=== PATIENT | female | born 1990 | race Caucasian/White ===

== ENCOUNTER → 2019-11-24 | Outpatient (REF) | payer OTHER | LOC: M SFHCPLAZ 09:20 | PROVIDERS: ATTEND Family Medicine | DX: F32.9 Major depressive disorder, single episode, unspecified (principal); E78.5 Hyperlipidemia, unspecified; Z13.1 Encounter for screening for diabetes mellitus ==

== ENCOUNTER → 2019-11-29 | Outpatient (CLI) | payer OTHER ==
[2019-11-29 09:20] LABS: HEMOGLOBIN A1c 5.5 %
[2019-11-29 09:31] LABS: CHOLESTEROL RISK RATIO 2.795 (<5); FREE T4 0.91 NG/DL (0.76-1.46); THYROID STIMULATING HORMONE 1.89 uIU/ML (0.358-3.740)
== END ==
LOC: M LAB 08:34
PROVIDERS: ATTEND Student in an Organized Health Care Education/Training Program
DX: Z13.1 Encounter for screening for diabetes mellitus (principal); E78.5 Hyperlipidemia, unspecified; F32.9 Major depressive disorder, single episode, unspecified

== ENCOUNTER → 2021-01-16 | Outpatient (REF) | payer OTHER | LOC: M SFHCWAGY 13:43 | PROVIDERS: ATTEND Nurse Practitioner Women's Health | DX: Z12.4 Encounter for screening for malignant neoplasm of cervix (principal); R87.620 Atypical squamous cells of undetermined significance on cytologic smear of vagina (ASC-US) ==

== ENCOUNTER → 2021-06-14 | Outpatient (REF) | LOC: M EMP 11:38 | PROVIDERS: ATTEND Family Medicine | DX: Z11.52 Encounter for screening for COVID-19 (principal) ==

== ENCOUNTER → 2021-08-29 | Outpatient (REF) ==
[2021-08-29 20:31] LABS: RSV AMPLIFICATION NEGATIVE (NEGATIVE)
== END ==
LOC: M EMP 19:42
PROVIDERS: ATTEND Family Medicine
DX: Z20.822 Contact with and (suspected) exposure to COVID-19 (principal)

== ENCOUNTER → 2021-10-02 | Outpatient (REF) ==
[2021-10-02 16:13] LABS: RSV AMPLIFICATION NEGATIVE (NEGATIVE)
== END ==
LOC: M EMP 14:28
PROVIDERS: ATTEND Family Medicine
DX: Z20.822 Contact with and (suspected) exposure to COVID-19 (principal)

== ENCOUNTER → 2023-08-25 | Outpatient (REF) | payer OTHER, MEDICAID | LOC: M SFHCWAGY 15:31 | PROVIDERS: ATTEND Nurse Practitioner Family | DX: Z12.4 Encounter for screening for malignant neoplasm of cervix (principal) ==

== ENCOUNTER → 2025-08-31 | Outpatient (REF) | payer MEDICAID, OTHER | LOC: M LAB REF 12:03 | PROVIDERS: ATTEND Physician Assistant | DX: B34.9 Viral infection, unspecified (principal) ==